=== PATIENT | male | born 1975 | race Caucasian/White ===

== ENCOUNTER 2024-12-31 08:55 | Day surgery (SDC) | payer OTHER, SELFPAY ==
[2024-12-31] MEDS: LACTATED RINGERS 1,000 ML 42 ML IV (09:25)
[2024-12-31 09:26] VITALS: BP 120/78; PULSE 62; RESP 16; TEMP 36.5; O2SAT 95
--- NOTE | 2024-12-31 09:55 | P.HP_ITS ---
History of Present Illness History of Present Illness Date Patient Seen: 12/31/24 Time Patient Seen: 09:55 Chief complaint: Colonoscopy Narrative: 49-year-old white male presents for initial screening colonoscopy. [facility] Medical History (Updated 12/31/24 @ 09:56 by Nestor Camilo MD) Colon cancer screening Social History Smoking Status: Never smoker alcohol intake: current Meds Home Medications and Allergies Home Medications Medication Instructions Recorded Confirmed Type No Known Home Medications 12/31/24 12/31/24 History Allergies Allergy/AdvReac Type Severity Reaction Status Date / Time banana Allergy ITCHING Verified 12/31/24 09:15 melon Allergy ITCHING Verified 12/31/24 09:15 tree nut Allergy ITCHING Verified 12/31/24 09:15 Review of Systems Review of Systems ROS: Yes All systems reviewed with the patient and are negative except as otherwise documented Exam Vital Signs (past 8 hours): - 12/31/24 09:26 Temperature 97.7 F Pulse Rate 62 Respiratory Rate 16 Blood Pressure 120/78 Pulse Oximetry 95 Oxygen Delivery Method Room Air Oxygen Delivery Method Room Air Narrative Exam Narrative: Gen: NAD, sitting comfortably in bed, appears well HEENT: Sclera are anicteric, head is normocephalic and atraumatic, trachea is midline. CV: RRR, no JVD Resp: clear to auscultation bilaterally, equal chest wall movement bilaterally Abd: soft, nontender, normoactive bowel sounds Ext: no edema, full range of motion Neuro: Cranial nerves II-XII grossly intact, no focal deficits Skin: No erythema or ecchymosis Assessment & Plan Assessment and plan (1) Colon cancer screening: Status: Acute Assessment & Plan narrative: Patient presents for colonoscopy Risks, benefits, alternatives to colonoscopy explained, including but not limited to bowel perforation or other serious complication requiring surgery at less than 1 in 5000 colonoscopies, abdominal pain, cramping or bleeding and less than 1% of colonoscopies, and the chances that we find a diagnosis that would require further intervention of about 2%. Patient agrees to proceed. Time-Based Coding :: [TOTAL MINUTES] spent with patient and on the chart (including review of chart, obtaining history, exam, reviewing outside data, placing orders, documenting exam and treatment plan, and counseling patient) on [DATE]. PROFEE Site Monitor Document charge(s): No
--- NOTE | 2024-12-31 10:18 | P.OP.COLON_ITS ---
Operative Date/Time/Diagnoses Date of procedure: 12/31/24 Time of procedure: 10:18 Pre-op diagnosis: Colon screening Post-op diagnosis: same Procedure & Clinicians Study performed: Colonoscopy Same procedure as scheduled: Yes Indications: Colon screening Surgeon: Nestor Camilo Procedure Notes SCOAP/Timeout: Performed Procedure in detail: Time-out was performed. Mac was induced. Patient was placed in left lateral d ecubitus position. The perineum was inspected without any gross abnormality. Lubricated pediatric colonoscope was inserted and advanced to the cecum. The terminal ileum was intubated. The colonoscope was withdrawn slowly inspecting the circumference of the colon. Very small polyps may have been missed, prep quality was adequate. Extensive diverticulosis was noted. Retroflexed view of the rectum showed small, non prolapsed nonbleeding internal hemorrhoids. The scope was withdrawn the patient was taken to PACU in good condition. Scope withdrawal time: 6 Findings: divertiulosis and internal hemorrhoids Specimen(s): none sent Complications: none Impression: Normal colon, diverticulosis Post-procedure Recommendations: Colonoscopy in 10 years Disposition: PACU
[2024-12-31 10:20] VITALS: BP 86/54; PULSE 67; RESP 14; TEMP 36.8; O2SAT 96
[2024-12-31 10:25] VITALS: BP 98/56; PULSE 65; RESP 15; O2SAT 95
[2024-12-31 10:30] VITALS: BP 96/61; PULSE 62; RESP 16; O2SAT 93
[2024-12-31 10:32] VITALS: BP 99/63; PULSE 63; RESP 19; O2SAT 95
== END 2024-12-31 10:51 | disposition home or self-care (01) ==
PROVIDERS: PCP Registered Nurse; Referring Provider Surgery; Visit Provider Surgery
PROC: 0DJD8ZZ Inspection of Lower Intestinal Tract, Via Natural or Artificial Opening Endoscopic (ICD-10-PCS; CPT 45378; principal; 2024-12-31 10:00)
DX: Z12.11 Encounter for screening for malignant neoplasm of colon (principal); K57.30 Diverticulosis of large intestine without perforation or abscess without bleeding; K64.8 Other hemorrhoids
CPT/HCPCS: 45378; J2704